=== PATIENT | male | born 1990 | race Caucasian/White ===

== ENCOUNTER 2017-03-26 17:37 | Emergency (ER) | payer OTHER ==
[~2017-03-26] VITALS: Ht 172.7 cm; Wt 117.5 kg
[2017-03-26 17:48] VITALS: BP 170/93
== END 2017-03-26 18:51 | disposition home or self-care (01) ==
LOC: ED 17:37
DX: R11.10 Vomiting, unspecified (principal); R19.7 Diarrhea, unspecified; J45.909 Unspecified asthma, uncomplicated; E66.01 Morbid (severe) obesity due to excess calories

== ENCOUNTER 2017-12-13 15:19 | Emergency (ER) | payer OTHER ==
[~2017-12-13] VITALS: Ht 175.3 cm; Wt 119.3 kg
[2017-12-13 15:52] VITALS: Ht 175.3 cm; Wt 119.3 kg
[2017-12-13 18:20] VITALS: BP 161/87
== END 2017-12-13 18:20 | disposition home or self-care (01) ==
LOC: ED 15:19
DX: B34.9 Viral infection, unspecified (principal); J45.901 Unspecified asthma with (acute) exacerbation
CPT/HCPCS: J1885; J2930; J7620

== ENCOUNTER 2018-03-22 13:49 | Emergency (ER) | payer OTHER ==
[~2018-03-22] VITALS: Ht 175.3 cm; Wt 114.8 kg
[2018-03-22 13:58] VITALS: Ht 175.3 cm; Wt 114.8 kg
[2018-03-22 14:26] LABS: BASOPHIL % 1.4 % (0-2); PLATELET COUNT 241 x10^3mcL (130-400); RED CELL DISTRIBUTION WIDTH 12.9 % (11.5-14.5)
[2018-03-22 14:50] LABS: CALCIUM 8.9 mg/dL (8.5-10.1); CARBON DIOXIDE 31.8 mmol/L (21-32); CHLORIDE SERUM 104 mmol/L (98-107); GFR1 > 60 mL/min; GLUCOSE SERUM 89 mg/dL (74-106); POTASSIUM SERUM 3.9 mmol/L (3.5-5.1); SODIUM SERUM 140 mmol/L (136-145)
[2018-03-22 15:19] VITALS: BP 148/94
== END 2018-03-22 15:19 | disposition home or self-care (01) ==
LOC: ED 13:49
PROVIDERS: Emergency Medicine
DX: R51 Headache (principal); I10 Essential (primary) hypertension; J45.909 Unspecified asthma, uncomplicated
CPT/HCPCS: 36415; J0780; J1200; J1885

== ENCOUNTER 2018-07-17 14:45 | Emergency (ER) | payer OTHER ==
[~2018-07-17] VITALS: Ht 172.7 cm; Wt 115.7 kg
[2018-07-17 15:42] VITALS: BP 134/80; Ht 172.7 cm; Wt 115.7 kg
== END 2018-07-17 17:35 | disposition home or self-care (01) ==
LOC: ED 14:45
DX: J06.9 Acute upper respiratory infection, unspecified (principal); J45.909 Unspecified asthma, uncomplicated

== ENCOUNTER 2018-08-24 20:49 | Emergency (ER) | payer OTHER ==
[2018-08-24 20:55] VITALS: Ht 175.3 cm
[2018-08-24 22:55] VITALS: BP 171/107
== END 2018-08-24 22:55 | disposition home or self-care (01) ==
LOC: ED 20:49
DX: T21.22XA Burn of second degree of abdominal wall, initial encounter (principal); B35.6 Tinea cruris; J45.909 Unspecified asthma, uncomplicated

== ENCOUNTER 2018-09-05 20:08 | Emergency (ER) | payer OTHER ==
[~2018-09-05] VITALS: Ht 172.7 cm; Wt 114.8 kg
[2018-09-05 20:23] VITALS: Ht 172.7 cm; Wt 114.8 kg
[2018-09-05 21:01] VITALS: BP 165/109
== END 2018-09-05 21:01 | disposition home or self-care (01) ==
LOC: ED 20:08
DX: L25.9 Unspecified contact dermatitis, unspecified cause (principal); J45.909 Unspecified asthma, uncomplicated

== ENCOUNTER 2018-11-08 20:10 | Emergency (ER) | payer OTHER ==
[~2018-11-08] VITALS: Ht 172.7 cm; Wt 113.4 kg
[2018-11-08 20:22] VITALS: Ht 172.7 cm; Wt 113.4 kg
[2018-11-08 21:31] LABS: CALCIUM 9.4 mg/dL (8.5-10.1); CARBON DIOXIDE 28.8 mmol/L (21-32); CHLORIDE SERUM 102 mmol/L (98-107); CREATININE SERUM 1.2 mg/dL (0.7-1.3); GFR1 > 60 mL/min; GLUCOSE SERUM 102 mg/dL (74-106); POTASSIUM SERUM 3.6 mmol/L (3.5-5.1); SODIUM SERUM 140 mmol/L (136-145)
[2018-11-08 22:23] LABS: AMPHETAMINE QUAL UR NONE DETECTED (See below)
[2018-11-09 00:14] VITALS: BP 166/56
== END 2018-11-09 00:14 | disposition home or self-care (01) ==
LOC: ED 20:10
PROVIDERS: Emergency Medicine
DX: R41.82 Altered mental status, unspecified (principal); J45.909 Unspecified asthma, uncomplicated
CPT/HCPCS: G0480; J7030

== ENCOUNTER 2019-04-10 18:04 | Emergency (ER) | payer MEDICAID ==
[~2019-04-10] VITALS: Ht 175.3 cm; Wt 107.5 kg
[2019-04-10 18:29] VITALS: Ht 175.3 cm; Wt 107.5 kg
[2019-04-10 19:55] VITALS: BP 165/105
== END 2019-04-10 19:55 | disposition home or self-care (01) ==
LOC: ED 18:04
DX: J45.909 Unspecified asthma, uncomplicated (principal); M79.652 Pain in left thigh

== ENCOUNTER 2019-05-07 18:59 | Emergency (ER) | payer OTHER ==
[~2019-05-07] VITALS: Ht 172.7 cm; Wt 106.1 kg
[2019-05-07 19:06] VITALS: Ht 172.7 cm; Wt 106.1 kg
[2019-05-07 23:15] VITALS: BP 151/85
== END 2019-05-07 23:15 | disposition home or self-care (01) ==
LOC: ED 18:59
DX: R06.02 Shortness of breath (principal); R05 Cough; J45.909 Unspecified asthma, uncomplicated
CPT/HCPCS: J0171; J7512; J7613; J7644

== ENCOUNTER 2019-08-26 08:48 | Emergency (ER) | payer OTHER ==
[~2019-08-26] VITALS: Ht 172.7 cm; Wt 103.4 kg
[2019-08-26 08:52] VITALS: Ht 172.7 cm; Wt 103.4 kg
[2019-08-26 10:01] VITALS: BP 142/85
== END 2019-08-26 10:01 | disposition home or self-care (01) ==
LOC: ED 08:48
DX: J11.1 Influenza due to unidentified influenza virus with other respiratory manifestations (principal); R51 Headache; M79.10 Myalgia, unspecified site; R11.0 Nausea; J45.909 Unspecified asthma, uncomplicated
CPT/HCPCS: J1885

== ENCOUNTER 2019-09-25 16:18 | Emergency (ER) | payer OTHER ==
[~2019-09-25] VITALS: Ht 172.7 cm; Wt 105.2 kg
[2019-09-25 17:48] VITALS: BP 154/94
== END 2019-09-25 17:22 | disposition home or self-care (01) ==
LOC: ED 16:18
DX: M54.6 Pain in thoracic spine (principal); J45.909 Unspecified asthma, uncomplicated

== ENCOUNTER 2019-11-21 18:07 | Emergency (ER) | payer OTHER ==
[~2019-11-21] VITALS: Ht 172.7 cm; Wt 109.3 kg
[2019-11-21 18:30] VITALS: Ht 172.7 cm; Wt 109.3 kg
[2019-11-21 20:40] VITALS: BP 151/91
== END 2019-11-21 20:40 | disposition home or self-care (01) ==
LOC: ED 18:07
DX: J45.909 Unspecified asthma, uncomplicated (principal)
CPT/HCPCS: J7620

== ENCOUNTER 2020-09-28 10:34 | Emergency (ER) | payer OTHER ==
[~2020-09-28] VITALS: Ht 172.7 cm; Wt 115.7 kg
[2020-09-28 10:38] VITALS: Ht 172.7 cm; Wt 115.7 kg
[2020-09-28 12:15] VITALS: BP 160/107
== END 2020-09-28 12:15 | disposition home or self-care (01) ==
LOC: ED 10:34
DX: H66.91 Otitis media, unspecified, right ear (principal); R09.89 Other specified symptoms and signs involving the circulatory and respiratory systems; J45.909 Unspecified asthma, uncomplicated